=== PATIENT | male | born 1960 | race Two or more races ===

== ENCOUNTER 2020-04-29 12:44 | Emergency (ER) | payer OTHER ==
[~2020-04-29] VITALS: Ht 177.8 cm; Wt 84.8 kg
[2020-04-29] MEDS ORDERED: PROZAC40 MG (13:17)
[2020-04-29] MEDS ORDERED: CLONAZEPAM0.5 MG (13:17)
[2020-04-29] MEDS ORDERED: BIKTARVY 50-201 EACH (13:18)
== END 2020-04-29 14:03 | disposition home or self-care (01) ==
LOC: ER 12:44
DX: S00.03XA Contusion of scalp, initial encounter (principal); W22.8XXA Striking against or struck by other objects, initial encounter; Y93.89 Activity, other specified; Y92.010 Kitchen of single-family (private) house as the place of occurrence of the external cause; Y99.8 Other external cause status

== ENCOUNTER 2020-07-04 14:31 | Outpatient (CLI) | payer OTHER ==
[~2020-07-04 14:31] MED LIST: BIKTARVY 50-201 EACH; CLONAZEPAM0.5 MG; NEURONTIN600 M1 PO; PROZAC40 MG; ZANAFLEX2 MG PO
== END 2020-07-04 15:00 | disposition home or self-care (01) ==
LOC: SONOGRAMA 14:31 → MAMO-SONO 15:15
PROVIDERS: ATTEND Urology
DX: N40.1 Benign prostatic hyperplasia with lower urinary tract symptoms (principal); Z12.5 Encounter for screening for malignant neoplasm of prostate; E29.1 Testicular hypofunction